=== PATIENT | male | born 1990 | race Caucasian/White ===

== ENCOUNTER → 2019-02-23 15:36 | Outpatient (CLI) | payer SELFPAY | PROVIDERS: Visit Provider Obstetrics & Gynecology | DX: R76.0 Raised antibody titer (principal) | CPT/HCPCS: 36415; 86850 ==

== ENCOUNTER → 2019-03-07 08:09 | Outpatient (CLI) | payer SELFPAY | PROVIDERS: Visit Provider Obstetrics & Gynecology | DX: R76.0 Raised antibody titer (principal) ==